=== PATIENT | female | born 1970 | race Caucasian/White ===

== ENCOUNTER 2025-05-26 13:49 | Emergency (ER) | payer OTHER | END 2025-05-26 15:45 | disposition home or self-care (01) | LOC: ED 13:49 | DX: S60.012A Contusion of left thumb without damage to nail, initial encounter (principal); W22.8XXA Striking against or struck by other objects, initial encounter; Y93.H2 Activity, gardening and landscaping; Y92.096 Garden or yard of other non-institutional residence as the place of occurrence of the external cause; Y99.8 Other external cause status ==